=== PATIENT | female | born 1975 | race Caucasian/White ===

== ENCOUNTER 2024-03-18 12:40 | Emergency (ER) | payer BC, SELFPAY ==
[2024-03-18 13:35] VITALS: BMI 25.6
[2024-03-18 13:42] VITALS: BP 109/71
--- NOTE | 2024-03-18 13:42 | ED.GENMED ---
History of Present Illness
General
Chief Complaint: Musculo-Skeletal Complaint
Source: patient
Exam Limitations: none
Time Seen by Provider: 03/18/24 13:07
Nursing documentation reviewed up to this point in time: agreed with
Travel History
Have you had any contact with someone who has COVID-19?: No
Do you have any symptoms of coronavirus? Fever > 100 degrees, chills, cough, shortness of breath, sore throat, loss of taste or smell, muscle aches, or headache?: No
History of Present Illness
History of Present Illness:
49-year-old female with no significant past medical history presents for coccyx pain over the last month. She says she had no trauma when the pain began
it stays in her coccyx region and initially was only with sitting or changing position
now she is much more uncomfortable. 2 weeks ago she went to her family doctor and they ordered a pelvic MRI which would not be done for another few weeks. She has been taking initially was only taking Tylenol or Motrin occasionally but over the
last several days she has needed to take Tylenol 1000 mg every 6 hours, she is not exceeding 4000 mg in a day but she is feeling the pain start on the medication is wearing off. She could not sleep last night which is bringing her here. The pain
is nonradiating down her legs, no associated numbness tingling or weakness
She has not had any incontinence or perineal anesthesia, no skin changes, no drainage. No hemorrhoids or bleeding. She does believe that her bowels are little bit different, and they are more stringy. She had a colonoscopy within the last year
which was totally normal. She has not had any unexplained weight loss.
Past History
Past History
ED Past Medical History: None
ED Past Surgical History: None
Social History
Tobacco: Non-smoker
Alcohol: None
Drug: None
Personal:
Living: with family
Employment: Employed
Review of Systems
Review of Systems
Allergies reviewed?: Yes
All Other Systems: Not applicable
Phy Exam
Physical Exam
Physical Exam:
GENERAL: Alert , in no apparent distress, comfortable at rest
HEAD: NCAT
NECK: no midline tenderness, active ROM intact, no paraspinal muscle tenderness;
CARDIAC: Regular rate and rhythm, no edema
LUNGS: Clear breath sounds bilaterally, no acute respiratory distress, no wheezes/rales/rhonchi
ABDOMEN: Soft, without focal tenderness, no r/g, no cvat, normal bowel sounds, nondistended
retal: nontender, nomral tone, normal sensation
NEUROLOGICAL: Alert and oriented, no focal neuro deficits, CN intact, 5/5 strength, sensation intact, ambulation difficult to start because of change of position but then walks normally
SKIN: Warm and dry, no rashes, no redness, no pilonidal cyst
MUSCULOSKELETAL: Nhips normal inspection, normal ROM
Back: very minimal reproducible tenderness coccyx
no skin changes
neg striaght leg raise, normal sensation
normal perineal sensation
PSYCH: Normal and appropriate interaction.
Course
Orders/Labs/Results
Orders:
Orders
03/18/24 13:38
CT Abd/Pel (IV only)-[facility] only Urgent
Comment:
Reason For Exam: coccyx pain, stool change
Ketorolac [Toradol] 30 mg IV NOW STA
03/18/24 13:42
Complete Blood Count/With Diff Urgent
Comprehensive Metabolic Panel Urgent
Abnormal Lab Results
03/18/24
13:42
Glucose 107 H mg/dl
(70-99)
03/18/24 13:42
03/18/24 13:42
Vital Signs
Initial and Last Documented VS:
Initial Vital Signs
Temp Pulse Resp Pulse Ox
98.7 F 81 18 97
03/18/24 12:42 03/18/24 12:42 03/18/24 12:42 03/18/24 12:42
Last Documented Vital Signs
Temp Pulse Resp BP Pulse Ox
98.7 F 59 18 113/74 100
03/18/24 12:42 03/18/24 17:10 03/18/24 17:10 03/18/24 17:10 03/18/24 17:10
MDM/Problems Addressed
Differential Diagnosis Includes:
coccidynea, pilonidal, mass/infection, fracture
MDM/Problems Addressed:
49 y/o F with tailbone pain x 1 mo
worsening
no trauma
no red flag ysmptoms
no signs of pilonidal or skin changes
slight stool changes
normal colonsocpy
d/w danita ttending
pt does have some tendernes but she seems more uncomfotable with sitting/changing position
neg straight leg raise
worked up with labs, ct
neg ct findings
could be coccydynea, nsaids ( mleoxicam) f/u with pcp, could also be spinal stenosis
return precautions
*Critical Care Note
Total Time (30-74mins, 75-104mins- exclusive of procedures): Not Applicable
ED Attending Note
-
Portions of this chart may have been created with voice recognition software.� Occasional wrong word or��sound alike� substitutions may have occurred due to the inherent limitations of voice recognition software.
Discharge Plan
Departure
Patient Disposition: Home (Routine Discharge)
Date of Disposition: 03/18/24
Time of Disposition: 17:40
Patient with high blood pressure during this ER visit?: No
Covid-19: Not Applicable
Discharge Problem:
Coccydynia
Instructions: Low Back Pain (DC)
Prescriptions:
New
meloxicam 7.5 mg tablet
7.5 mg PO DAILY Qty: 10 0RF
No Action
TABLET
Referrals:
Kentrell Upton MD [Active] - Follow up in 1 week
Renato Cheng DO [Family Provider] - Follow up in 2-3 days
Stand Alone Forms: Return to Work
Activity Restrictions/Additional Instructions:
Your pain could be due to coccydynia. This can be difficult to treat but you should try NSAIDs, meloxicam as prescribed for 5 to 7 days with food. Additionally you can take Tylenol extra strength 2 tablets 3-4 times a day. Do not exceed 4000 mg
of Tylenol in 24-hour period.
You can apply ice or heat to the area. You should continue the further workup with your MRI as scheduled. They may want to include a lumbar spine to evaluate for spinal stenosis. Return to the ER for leg weakness or numbness, incontinence, fever
or chills, urinary incontinence, vomiting
You may consider physical therapy or seeing pain management for other treatment ideas. Return to the ER for any worsening symptoms
Interventions
Interventions:
*Risk Screen - Suicide Last Done: 03/18/24 12:43
*General Assessment Last Done: 03/18/24 12:43
*Neglect/Abuse Screening Last Done: 03/18/24 12:43
ED- Fall Risk Assessment Last Done: 03/18/24 13:49
*ED COVID-19 Vaccine History Last Done: 03/18/24 12:43
*Nursing Disposition Last Done: 03/18/24 18:06
ED-Musculoskeletal Assessment Last Done: 03/18/24 13:48
Discharge Date and Time
Discharge Date/Time: 03/18/24 18:08
Print Language: BELIZEAN
[2024-03-18] MEDS: TORADOL 30 MG IV (13:44)
[2024-03-18 13:49] LABS: % Eosinophils 2.1 % (0-6); % Immature Granulocytes 0.2 % (0-0.5); % Monocytes 8.9 % (1.7-9.3); % Neutrophils 57.8 % (42.2-75.2); Absolute Basophils 0.1 10^3/uL (0-0.2); Absolute Eosinophils 0.1 10^3/uL (0-0.7); Absolute Lymphocytes 1.6 10^3/uL (1.2-3.4); Absolute Monocytes 0.5 10^3/uL (0.1-0.6); Hematocrit 39.9 % (37.0-47.0); Mean Corp Hgb Conc. 35.1 g/dL (33.0-37.0); Mean Corpuscular Hgb 30.6 pg (27.0-31.0); Mean Corpuscular Volume 87.1 fL (81.0-99.0); Mean Platelet Volume 10.4 fL (7.4-10.4); Nucleated Red Blood Cells % 0 %; Platelet Count 221 10^3/uL (130-400); Red Blood Cell Count 4.58 10^6/uL (4.20-5.40); Red Cell Dist. Width 12.1 % (11.5-14.5); White Blood Cell Count 5.2 10^3/uL (4.8-10.8)
[2024-03-18 14:00] LABS: ALT (SGPT) 12 U/L (0-35); AST (SGOT) 21 U/L (14-36); Albumin 4.1 g/dl (3.5-5.0); Alkaline Phosphatase 58 U/L (38-126); Blood Urea Nitrogen 14 mg/dl (7-17); Calcium 9.6 mg/dl (8.4-10.2); Carbon Dioxide 27 mmol/L (22-30); Chloride 105 mmol/L (98-107); Estimated Creatinine Clearance 97 ml/min; Glucose 107 mg/dl (70-99); Potassium 4.2 mmol/L (3.5-5.1); Sodium 137 mmol/L (135-145); Total Bilirubin 0.8 mg/dl (0.2-1.3); Total Protein 6.5 g/dl (6.3-8.2); eGFR > 60.00
[2024-03-18 16:15] VITALS: BP 112/75
[2024-03-18 17:10] VITALS: BP 113/74
== END 2024-03-18 18:08 | disposition home or self-care (01) ==
LOC: EMR 12:40
PROVIDERS: Physician Assistant; EMERGENCY PHYSICIAN Emergency Medicine; FAMILY PHYSICIAN Family Medicine
DX: M53.3 Sacrococcygeal disorders, not elsewhere classified (principal); M79.605 Pain in left leg; M79.604 Pain in right leg; Z91.030 Bee allergy status
CPT/HCPCS: 99285; 96374; 74177; 80053; 85025; Q9967

== ENCOUNTER → 2024-04-13 13:38 | Outpatient (REF) | payer BC, SELFPAY | LOC: MRI 3T 13:38 | PROVIDERS: ATTENDING PHYSICIAN Nurse Practitioner Family; FAMILY PHYSICIAN Family Medicine | DX: M53.3 Sacrococcygeal disorders, not elsewhere classified (principal) | CPT/HCPCS: 72158; A9575 ==

== ENCOUNTER → 2024-04-27 16:41 | Outpatient (REF) | payer BC, SELFPAY | LOC: MRI 3T 16:41 | PROVIDERS: ATTENDING PHYSICIAN Nurse Practitioner Family; FAMILY PHYSICIAN Family Medicine | DX: M53.3 Sacrococcygeal disorders, not elsewhere classified (principal) | CPT/HCPCS: 72197; A9575 ==

== ENCOUNTER → 2024-05-29 08:12 | Outpatient (REF) | payer BC, SELFPAY | LOC: WDC 08:12 | PROVIDERS: ATTENDING PHYSICIAN Physician Assistant Surgical; FAMILY PHYSICIAN Family Medicine | DX: Z12.31 Encounter for screening mammogram for malignant neoplasm of breast (principal) | CPT/HCPCS: 77063; 77067 ==

== ENCOUNTER → 2024-06-14 14:54 | Outpatient (REF) | payer SELFPAY | LOC: RAD 14:54 | PROVIDERS: ATTENDING PHYSICIAN Family Medicine; REFERRING PHYSICIAN Obstetrics & Gynecology | DX: E78.5 Hyperlipidemia, unspecified (principal); Z13.6 Encounter for screening for cardiovascular disorders | CPT/HCPCS: 75571 ==

== ENCOUNTER 2024-06-20 18:55 | Outpatient (RCR) | payer BC, SELFPAY | END 2024-06-20 23:59 | disposition home or self-care (01) | LOC: RPT 18:55 | PROVIDERS: ATTENDING PHYSICIAN Psychiatry & Neurology Neurology; FAMILY PHYSICIAN Family Medicine | DX: M25.551 Pain in right hip (principal); M25.552 Pain in left hip; M54.50 Low back pain, unspecified | CPT/HCPCS: 97110; 97112; 97140; 97163; 97530 ==

== ENCOUNTER 2024-07-05 10:06 | Outpatient (RCR) | payer BC, SELFPAY | END 2024-07-05 23:59 | disposition home or self-care (01) | LOC: RPT 10:06 | PROVIDERS: ATTENDING PHYSICIAN Psychiatry & Neurology Neurology; FAMILY PHYSICIAN Family Medicine | DX: M25.559 Pain in unspecified hip (principal); Z73.6 Limitation of activities due to disability | CPT/HCPCS: 97112; 97530 ==

== ENCOUNTER → 2025-09-17 08:17 | Outpatient (REF) | payer BC, SELFPAY | LOC: WDC 08:17 | PROVIDERS: ATTENDING PHYSICIAN Family Medicine | DX: Z12.31 Encounter for screening mammogram for malignant neoplasm of breast (principal) | CPT/HCPCS: 77063; 77067 ==